=== PATIENT | male | born 1995 | race Hispanic/Latino ===

== ENCOUNTER 2019-02-07 19:23 | Emergency (ER) | payer SELFPAY ==
[2019-02-07] MEDS ORDERED: SODIUM CHLORIDE 0.9% 1000ML 1,000 ML IV ONE ×2 (20:09→21:11)
[2019-02-07 20:34] LABS: HEMATOCRIT 50.9 % (42-54); LYMPHOCYTES % (AUTO) 20.5 % (21.0-51.0); MEAN CORPUSCULAR HEMOGLOBIN 31.5 pg (27.0-33.0); MEAN CORPUSCULAR HGB CONC 34.5 g/dL (32.0-36.0); MEAN CORPUSCULAR VOLUME 91.1 fL (80-100); MONOCYTES % (AUTO) 7.7 % (3.0-13.0); NEUTROPHILS % (AUTO) 70.8 % (40.0-77.0); NUCLEATED RED BLOOD CELLS 0.2 % (0.0-0.19); PLATELET COUNT (AUTO) 427 K/uL (130-400); RED BLOOD CELL COUNT(AUTO) 5.59 MIL/uL (4.50-6.20); RED CELL DISTRIBUTION WIDTH 13.8 % (11.0-15.5); WHITE BLOOD COUNT (AUTO) 4.6 K/uL (4.8-10.8)
[2019-02-07 20:38] LABS: APPEARANCE,URINE Clear (CLEAR); BILIRUBIN,URINE Negative (NEGATIVE); COLOR,URINE Yellow (YELLOW); GLUCOSE, URINE (UA) Negative (NEGATIVE); KETONES,URINE 15 mg/dL (NEGATIVE); LEUKOCYTE ESTERASE ,URINE Negative (NEGATIVE); NITRATE,URINE Negative (NEGATIVE); OCCULT BLOOD,URINE Moderate (NEGATIVE); PROTEIN,URINE >=1000 mg/dL (NEGATIVE)
[2019-02-07 20:46] LABS: AMPHET/METH SCREEN,URINE NEGATIVE (NEGATIVE); BARBITURATE SCREEN, URINE NEGATIVE (NEGATIVE); BENZODIAZEPINES SCREEN,URINE NEGATIVE (NEGATIVE); CANNABINOID SCREEN,URINE NEGATIVE (NEGATIVE); COCAINE SCREEN,URINE NEGATIVE (NEGATIVE); OPIATE SCREEN,URINE NEGATIVE (NEGATIVE); PHENCYCLIDINE SCREEN,URINE NEGATIVE (NEGATIVE)
[2019-02-07 20:49] LABS: CREATININE 0.8 mg/dL (0.5-1.5); POTASSIUM 3.6 mmol/L (3.5-5.1)
[2019-02-07 20:52] LABS: BACTERIA,URINE Few /HPF (None Seen); MUCUS,URINE Moderate LPF (None Seen)
[2019-02-07 20:54] LABS: ALBUMIN 4.2 g/dL (3.5-5.0); BILIRUBIN,TOTAL 0.5 mg/dL (0.2-1.0); TOTAL PROTEIN, SERUM 8.6 g/dL (6.0-8.3)
[2019-02-07] MEDS ORDERED: KETOROLAC TROMETHAMINE 30MG/ML ONE (21:11)
== END 2019-02-07 23:58 | disposition home or self-care (01) ==
LOC: EDH 19:23
DX: R07.89 Other chest pain (principal); F10.929 Alcohol use, unspecified with intoxication, unspecified
CPT/HCPCS: 36415; 71045; 80053; 80305; 81001; 84484 ×2; 85025; 93005 ×2; 96374; 99285; G0480; J1885; J7030 ×2

== ENCOUNTER 2022-04-03 19:56 | Emergency (ER) | payer BC ==
[~2022-04-03] VITALS: Ht 172.7 cm; Wt 88.5 kg
[2022-04-03 20:08] VITALS: BP 147/79
[2022-04-03] MEDS ORDERED: TETANUS/DIPHTHERIA TOXOID [ADULT] 0.5 ML VIAL IM ONE (21:00)
[2022-04-03] MEDS ORDERED: LIDOCAINE HCL MPF 1% 5ML VIAL IM SCH (21:00)
[2022-04-03] MEDS ORDERED: LIDOCAINE HCL 1% 20 ML VIAL ONE (21:08)
[2022-04-03] MEDS ORDERED: BACITRACIN 1 EACH PACKET TP ONE (22:19)
[2022-04-03] MEDS ORDERED: IBUP-2070 PO (22:20)
[2022-04-03] MEDS ORDERED: AMOX1TAB16 PO (22:20)
[2022-04-03] MEDS ORDERED: BACI30OI6 TP (22:20)
[2022-04-03] MEDS ORDERED: BACITRACIN 28.4 GM OINT TP ONE (22:30)
[2022-04-03] MEDS ORDERED: AMOX/CLAV 875/125MG TAB PO ONE (22:30)
== END 2022-04-03 22:36 | disposition home or self-care (01) ==
LOC: EDH 19:56
DX: S81.012A Laceration without foreign body, left knee, initial encounter (principal); W18.39XA Other fall on same level, initial encounter; Y93.67 Activity, basketball; Y92.89 Other specified places as the place of occurrence of the external cause; Y99.8 Other external cause status
CPT/HCPCS: 99284; 90714; 73562; 90471; 12002; J3490

== ENCOUNTER 2025-03-21 15:58 | Inpatient (IN) | payer SELFPAY ==
[~2025-03-21] VITALS: Ht 172.7 cm; Wt 79.4 kg
[~2025-03-21 15:58] MED LIST: AMOX1TAB16 PO; BACI30OI6 TP; IBUP-1492 PO
--- NOTE | 2025-03-21 16:08 | ERN ---
ED Note History of Present Illness Stated Complaint: ALCOHOL WITHDRAWAL Chief Complaint: Withdrawl Time Seen by MD: 16:01 Dictation: PATIENT IS A 29-YEAR-OLD MALE COMING IN FROM [place] [employer] AFTER BEING ARRESTED OVERNIGHT FOR PUBLIC INTOXICATION. HE STATES HE DRINKS ON A DAILY BASIS LAST ALCOHOL WAS YESTERDAY AFTERNOON. STATES HE GOES INTO WITHDRAWALS WHEN HE JUST NOT DRINK. NO SI OR HI. PATIENT NOTED TO BE HYPERTENSIVE AND TACHYCARDIC. DOCTOR. Allergies: Coded Allergies: No Known Drug Allergies (Unverified Allergy, Unknown, 04/03/22) Home Meds Active Scripts Ibuprofen (Ibuprofen) 600 Mg Tablet, 600 MG PO Q6H PRN for PAIN, #15 TAB Prov:FITTINGPRISCILLAMATT [facility] 04/03/22 Bacitracin (Bacitracin) 28.4 Gm Oint...g., 28.4 GM TP TID, #1 TUBE Prov:FITTINGSTIVEN [facility] 04/03/22 Amoxicillin/Potassium Clav (Amox Tr-K Clv 875-125 mg Tab) 1 Each Tablet, 1 EACH PO BID, #14 TAB Prov:FITTING,PRISCILLAASHELY [facility] 04/03/22 Past Medical History Past Medical History: Alcoholism, Anxiety, Liver Disease Surgical History: Other Social History: ETOH RN Note Reviewed/Agreed w/PFSH: Yes Review of System Dictation CONSTITUTIONAL: NEGATIVE EXCEPT FOR HPI HEAD/FACE: NEGATIVE EXCEPT FOR HPI EENT: NEGATIVE EXCEPT FOR HPI RESPIRATORY: NEGATIVE EXCEPT FOR HPI GASTROINTESTINAL/ABDOMINAL: NEGATIVE EXCEPT FOR HPI GENITOURINARY: NEGATIVE EXCEPT FOR HPI MUSCULOSKELETAL: NEGATIVE EXCEPT FOR HPI INTEGUMENTARY: NEGATIVE EXCEPT FOR HPI NEUROLOGICAL/PSYCH: NEGATIVE EXCEPT FOR HPI ACUTE ALCOHOL WITHDRAWAL HEMATOLOGIC/LYMPHATIC: NEGATIVE EXCEPT FOR HPI ALL SYSTEMS NEGATIVE, EXCEPT NOTED ABOVE. 13 POINT REVIEW OF SYSTEMS ASSESSED AND ALL NEGATIVE EXCEPT FOR ABOVE. Initial Vital Sign VS Vital Signs Date Time Temp Pulse Resp B/P (MAP) Pulse Ox O2 Delivery O2 Flow Rate FiO2 03/21/25 16:00 97.9 105 20 160/73 99 Room Air 0 Physical Exam Dictation VITAL SIGNS REVIEWED GENERAL APPEARANCE: ALERT, ORIENTED X 3, MILD ACUTE DISTRESS, WELL DEVELOPED, NOURISHED. SMELLS OF HEAD AND FACE: NON-TRAUMATIC. EYES: PERRL, PINK CONJUNCTIVAS, EYELID NO TRAUMA, ANTERIOR CHAMBER WITH ARCUS SENILIS. EARS: PINNAS INTACT AND NO SIGNS OF TRAUMA OR ERYTHEMA EAR CANALS CLEAR AND NO DISCHARGE TM NO ERYTHEMA NOSE: NO DISCHARGE, NO BLEEDING. OROPHARYNX: MOUTH NORMAL, TONGUE PINK, PHARYNX CLEAR,NO ERYTHEMA, TONSILS NO EXUDATES, NO ABSCESSES NOTED, MUCOUS MEMBRANE MOIST NECK: SUPPLE, NON-TENDER, NO THYROMEGALY, NO MASSES, NO JVD, NO BRUITS BREAST:DEFERRED CHEST:NO TENDERNESS, NO CREPITUS, NO PARADOXICAL MOVEMENT, NO RETRACTIONS LUNGS:CLEAR, WELL-VENTILATED, SYMMETRIC, NO RALES, NO WHEEZING, NO RHONCHI, NO STRIDOR, GOOD BREATH SOUNDS BILATERALLY HEART: TACHYCARDIC O MURMUR, NO GALLOPS VASCULAR: NO PERIPHERAL EDEMA, ABDOMEN: SOFT, POSITIVE BOWEL SOUNDS, NONDISTENDED, NO GUARDING, NONTENDER, NO REBOUND, NO MASSES NO HEPATOMEGALY, NO SPLENOMEGALY, NO CHEUNG'S SIGN, NO HERNIAS. RECTAL: DEFERRED GENITAL: DEFERRED NEUROLOGICAL: NORMAL SPEECH, MOTOR FUNCTION INTACT, SENSORY FUNCTION INTACT DENIES SI OR HI MUSCULOSKELETAL: NECK NONTENDER, FULL RANGE OF MOTION, BACK NONTENDER, FULL RANGE OF MOTION, EXTREMITIES: NONTENDER, FULL RANGE OF MOTION SKIN: COLOR PINK, DRY, NO TURGOR, NO RASH, NO LACERATIONS, NO ABRASIONS, NO CONTUSIONS. LYMPHATIC: DEFERRED Results (Laboratory/Radiology) Laboratory/Radiology Laboratory Tests Test 03/21/25 16:15 White Blood Count 10.1 K/uL (4.8-10.8) Red Blood Count 4.64 MIL/uL (4.50-6.20) Hemoglobin 13.8 g/dL (14.0-18.0) L Hematocrit 38.6 % (42-54) L Mean Corpuscular Volume 83.2 fL (79-99) Mean Corpuscular Hemoglobin 29.7 pg (27.0-33.0) Mean Corpuscular Hemoglobin Concent 35.8 g/dL (32.0-36.0) Red Cell Distribution Width 11.9 % (11.0-15.5) Platelet Count 130 K/uL (130-400) Mean Platelet Volume 8.1 fL (7.5-10.5) Immature Granulocyte % (Auto) 0.9 % (0-1) Neutrophils (%) (Auto) 86.7 % (40.0-77.0) H Lymphocytes (%) (Auto) 4.6 % (21.0-51.0) L Monocytes (%) (Auto) 7.4 % (3.0-13.0) Eosinophils (%) (Auto) 0.1 % (0.0-8.0) Basophils (%) (Auto) 0.3 % (0.0-5.0) Neutrophils # (Auto) 8.8 K/uL (1.8-7.7) H Lymphocytes # (Auto) 0.5 K/uL (1.0-4.8) L Monocytes # (Auto) 0.8 K/uL (0.1-1.0) Eosinophils # (Auto) 0.01 K/uL (0.00-0.70) Basophils # (Auto) 0.03 K/uL (0.00-0.20) Absolute Immature Granulocyte (auto 0.09 K/uL (0-1) Segmented Neutrophils % 69 % (40-70) Band Neutrophils % 14 % (0-2) H Lymphocytes % (Manual) 7 % (22-44) L Monocytes % (Manual) 10 % (2-9) H Nucleated Red Blood Cells 0.0 % (0.0-0.19) Differential Comment MANUAL DIFFERENTIAL White Cell Morphology Comment CONSISTENT W/DIFF Platelet Morphology Comment ADEQUATE Red Blood Cell Morphology ANISO 1+ Sodium Level 114 mmol/L (136-145) L Potassium Level 3.0 mmol/L (3.5-5.1) *L Chloride Level 73 mmol/L (101-111) *L Carbon Dioxide Level 19 mmol/L (21-32) L Blood Urea Nitrogen 7 mg/dL (7-18) Creatinine 0.8 mg/dL (0.5-1.3) Glomerular Filtration Rate Calc 124 mL/min (>90) Random Glucose 120 mg/dL (70-105) H Total Calcium 7.5 mg/dL (8.5-10.1) L Magnesium Level 1.40 mg/dL (1.80-2.40) L Total Creatine Kinase 1983 U/L (21-232) *H Salicylates Level < 2.8 mg/dL (2.8-20.0) L Acetaminophen Level < 1 mcg/mL (10-29) L Serum Alcohol 176 mg/dL (0-10) H Labs Reviewed?: Yes ED Course ED Course Orders Procedure Category Date Status Time Drug Screen Urine LAB 03/21/25 Logged 16:04 Use [facility] CPOE 03/21/25 Transmitted Assmt. Tool 16:04 Diazepam 5 Mg/Ml 2 Ml PHA 03/21/25 In Process Syg (Valium 5 Mg/M 16:30 Cbc With Differential LAB 03/21/25 Complete 16:04 Alcohol, Blood LAB 03/21/25 Complete 16:04 Salicylate LAB 03/21/25 Complete 16:04 Acetaminophen LAB 03/21/25 Complete 16:04 Urinalysis Profile LAB 03/21/25 Logged 16:04 Creatine Kinase, Total LAB 03/21/25 Complete 16:04 Basic Metabolic Panel LAB 03/21/25 Complete 16:04 Diazepam 5 Mg/Ml 2 Ml PHA 03/21/25 Complete Syg (Valium 5 Mg/M 17:00 Magnesium LAB 03/21/25 Complete 16:47 Etoh Alcohol SOPHIA 03/21/25 In Process Withdrawal Ords 16:47 Chlordiazepoxide Hcl PHA 03/21/25 In Process 25 Mg Cap (Librium 17:00 Thiamine Hcl (Vitamin PHA 03/21/25 In Process B-1)... 17:00 Thiamine Hcl (Vitamin PHA 03/22/25 In Process B-1) 09:00 Folic Acid 1 Mg PHA 03/22/25 In Process Tablet (Folic Acid 1 09:00 Multivitamin Tablet PHA 03/22/25 In Process (Multivitamin Tablet 09:00 Pharmacy PHA 03/21/25 In Process Communication 17:00 Use [facility] CPOE 03/21/25 Transmitted Assmt. Tool 16:47 Assess The Need For CPOE 03/21/25 Transmitted Seizure & 16:47 Vs Per Unit Routine & CPOE 03/21/25 Transmitted With 16:47 Document Etoh CPOE 03/21/25 Transmitted Withdrawal Score 16:47 One To One Sitter CPOE 03/21/25 Transmitted 16:58 Manual Differential LAB 03/21/25 Complete 16:15 Potassium Bicarb/Cit PHA 03/21/25 Complete Ac 25meq (K-Lyte Ta 17:30 Magnesium 2gm Premix PHA 03/21/25 In Process 50ml (Magnesium 2gm 17:30 Edm Admit Bridge Order ADM 03/21/25 Transmitted 18:10 Current Medications Medications (Trade) Dose Ordered Sig/Sumanth Route PRN Reason Start Time Stop Time Status Last Admin Dose Admin Chlordiazepoxide HCl (LIBrium 25 MG CAP) 50 mg Q1H PRN PO ALCOHOL WITHDRAWAL PROTOCOL 03/21/25 17:00 03/28/25 16:59 03/21/25 17:57 Diazepam (VALium 5 MG/ML 2 ML SYG) 5 mg ONCE ONCE IVP 03/21/25 17:00 03/21/25 17:01 DC 03/21/25 17:28 Diazepam (VALium 5 MG/ML 2 ML SYG) 5 mg Q4H PRN IV ANXIETY 03/21/25 16:30 03/28/25 16:29 03/21/25 16:19 Folic Acid (FOLic ACID 1 MG TABLET) 1 mg DAILY PO 03/22/25 09:00 03/24/25 09:01 Magnesium Sulfate 50 ml @ 0 mls/hr PROTOCOL IV 03/21/25 17:30 04/20/25 17:29 Multivitamins Therapeutic (Multivitamin Tablet) 1 tab DAILY PO 03/22/25 09:00 04/21/25 08:59 Pharmacy Profile Note (Pharmacy Communication) 1 each PROTOCOL PRN MISC ETOH Withdrawal Score changes 03/21/25 17:00 03/28/25 16:59 Potassium Bicarbonate (K-Lyte Tablet Eff 25 Meq Tablet.eff) 50 meq ONCE ONCE PO 03/21/25 17:30 03/21/25 17:31 DC 03/21/25 17:57 Thiamine HCl (Vitamin B-1) 100 mg DAILY IM 03/22/25 09:00 03/24/25 09:01 Thiamine HCl 100 mg/Folic Acid 1 mg/Multivitamins/ Minerals 10 ml/ Sodium Chloride 1,011.2 ml @ 100 mls/ hr Q24H IV 03/21/25 17:00 03/24/25 03:07 03/21/25 17:47 Vital Signs Date Time Temp Pulse Resp B/P (MAP) Pulse Ox O2 Delivery O2 Flow Rate FiO2 03/21/25 16:00 97.9 105 20 160/73 99 Room Air 0 1655/CIWA PROTOCOL WAS INITIATED WHEN PATIENT ARRIVED. HE HAS ALREADY BEEN PROVIDED DIAZEPAM5 MG IV PUSH X2 BY [employer]ICRAFT OR [employer] MANAGER. HE IS BECOMING INCREASINGLY AGITATED AND WANTS TO LEAVE THE HOSPITAL. I ADVISED HIM IF HE WOULD TRY TO LEAVE I WOULD CALL THE POLICE TO HAVE HIM ARREST UP BECAUSE HE WAS A THREAT TO HIMSELF AND OTHERS. HE SAID HE WOULD CALL HIS GRANDFATHER TO PICK HIM UP. ADDITIONALLY, I WE WILL ORDER A 1-1 SITTER PATIENT THREAT TO HIMSELF 1800/PATIENT RHABDOMYOLYSIS CK 1898. POTASSIUM IS 3.[address] WITH THE ORAL ADDITIONALLY HE HAS A CHLORIDE OF 81 PATIENT WILL BE ADMITTED TO THE HOSPITAL FOR ACUTE ALCOHOL WITHDRAWAL SEVERE DEHYDRATION RHABDOMYOLYSIS ELECTROLYTE [id number]/ 181/SPOKE WITH PRISCILLA RIVERO HOSPITALIST REVIEWED LABS AND INTERVENTIONS FOR ACUTE ALCOHOL WITHDRAWAL TO INCLUDE CIWA/MAGNESIUM/VALIUM/BANANA BAG. Medical Decision Making MDM MDM: DIFFERENTIAL DIAGNOSIS: POLYDRUG ABUSE/ALCOHOL INTOXICATION/ELECTROLYTE IMBALANCE/DEHYDRATION/RHABDO RATIONALE: TESTS CONSIDERED AND ORDERED SECONDARY TO SHARED DECISION MAKING INCLUDE: LABS, PREVIOUS OUTSIDE RECORDS REVIEWED: OLD ER VISITS. RISK OF COMPLICATION AND/OR MORBIDITY OR MORTALITY OF PATIENT MANAGEMENT: NONE MEDICATIONS-PER MEDICATION RECONCILIATION NEED FOR HOSPITALIZATION: PATIENT DOES MEET CRITERIA FOR HOSPITALIZATION. ACUTE ALCOHOL WITHDRAWAL ELECTROLYTE STABILIZATION REHYDRATION NEED FOR EMERGENCY MAJOR/MINOR SURGERY: NO THERE ARE NO SOCIAL CONCERNS WITH THIS PATIENT. DAILY ALCOHOL ABUSE PATIENT IS A THREAT TO HIMSELF PRESCRIPTION DRUG MANAGEMENT PRESCRIPTIONS WILL INCLUDE SYMPTOMATIC CARE PATIENT'S PRIOR EXTERNAL MEDICAL RECORDS FROM OTHER ER VISITS WERE REVIEWED BY ME INDICATED. PRIOR TESTING AND RESULTS FROM PREVIOUS VISITS WERE REVIEWED. PRIOR TESTS WERE TAKEN INTO ACCOUNT WITH MEDICAL DECISION MAKING AND RESOURCE UTILIZATION, INDEPENDENT HISTORIAN/HISTORIANS WERE USED TO OBTAIN COMPLETE MEDICAL HISTORY. I INDEPENDENTLY INTERPRETED THE TEST THAT WERE PERFORMED, RESULTS WERE REVIEWED BY ME AND CONSIDERED FINDINGS ON RADIOLOGY IF ORDERED. MEDICAL MANAGEMENT AND EXAMINATION INTERPRETATION DISCUSSIONS WERE HAD BY ME WITH OTHER QUALIFIED HEALTHCARE PROFESSIONALS INDICATED FOR THE PATIENT'S CARE. DX & DISP Disposition: Inpatient Departure Impression: Primary Impression: Acute alcohol intoxication Additional Impressions: Alcohol abuse, Rhabdomyolysis, Hyponatremia, Severe dehydration, Hypomagnesemia, Poor ability to follow directions Condition: Stable Referrals: SELF,REFERRAL (PCP) Time of Disposition: 17:59 I have reviewed the case, and I agree with, Diagnosis and Plan WILIAN EUBANKS Mar 21, 2025 16:08
[2025-03-21 16:50] LABS: IMMATURE GRANULOCYTE ABSOLUTE 0.09 K/uL (0-1); NUCLEATED RED BLOOD CELLS 0.0 % (0.0-0.19); PLATELET COUNT (AUTO) 130 K/uL (130-400); RED BLOOD CELL COUNT(AUTO) 4.64 MIL/uL (4.50-6.20); RED CELL DISTRIBUTION WIDTH 11.9 % (11.0-15.5); WHITE BLOOD COUNT (AUTO) 10.1 K/uL (4.8-10.8)
[2025-03-21] MEDS ORDERED: PHARMACY COMMUNICATION MISC PRN (17:00)
[2025-03-21 17:07] LABS: BAND NEUTROPHILS % (MANUAL) 14 % (0-2); LYMPHOCYTES % (MANUAL) 7 % (22-44); MONOCYTES % (MANUAL) 10 % (2-9); SEGMENTED NEUTROPHILS % 69 % (40-70)
[2025-03-21 17:08] LABS: MAN.DIFF COMMENT-IMPRESSION MANUAL DIFFERENTIAL; PLATELET MORPHOLOGY COMMENT ADEQUATE; WBC MORPHOLOGY CONSISTENT W/DIFF
[2025-03-21 17:21] LABS: ALCOHOL, BLOOD 176 mg/dL (0-10); CREATININE 0.8 mg/dL (0.5-1.3); GLOMERULAR FILTR. RATE CALC 124 mL/min (>90); GLUCOSE,RANDOM 120 mg/dL (70-105); SODIUM SERUM 114 mmol/L (136-145); UREA NITROGEN, BLOOD 7 mg/dL (7-18)
[2025-03-21 17:25] LABS: CREATINE KINASE, TOTAL 1983 U/L (21-232)
[2025-03-21] MEDS: THIAMINE HCL 100 MG, FOLic ACID 5 MG/ML VIAL 1 MG, M.V.I. IV [ADULT] 10 ML in 0.9%NACL ... IV SCH ×2 (17:47→20:00)
--- NOTE | 2025-03-21 18:05 | NUR ---
PT MOTHER ISABELAHUNTER HUI [phone]
[2025-03-21 18:18] LABS: APPEARANCE,URINE CLEAR (CLEAR); GLUCOSE, URINE (UA) NEGATIVE (NEGATIVE); LEUKOCYTE ESTERASE ,URINE NEGATIVE Leu/uL (NEGATIVE); NITRATE,URINE NEGATIVE (NEGATIVE); OCCULT BLOOD,URINE MODERATE (NEGATIVE)
[2025-03-21 18:20] LABS: ADD UA MICROSCOPIC YES
[2025-03-21 18:27] LABS: AMPHET/METH SCREEN,URINE NEGATIVE (NEGATIVE); BARBITURATE SCREEN, URINE NEGATIVE (NEGATIVE); CANNABINOID SCREEN,URINE NEGATIVE (NEGATIVE); COCAINE SCREEN,URINE NEGATIVE (NEGATIVE)
[2025-03-21] MEDS: MAGNESIUM 2GM PREMIX 50ML 50 ML IV SCH (19:10)
--- NOTE | 2025-03-21 19:13 | HP ---
History of Present Illness Reason for Visit: [facility] History of Present Illness Mr. Bauer is a 29-year-old male that was seen and examined today on 03/21/2025. Patient is currently a poor historian after receiving IV Valium and oral Librium. There was no previous medical records available for me to review. The following was obtained from emergency room physician report. This is a 29-year-old male with a history of alcohol abuse, alcohol dependence with withdrawal episodes, anxiety and reported liver disease who presents from police custody after being arrested for public intoxication overnight. Patient reports drinking alcohol daily with his last drink yesterday afternoon. He states he experiences withdrawals if I do not drink. Upon arrival to the emergency department that patient was visibly intoxicated, becoming increasingly agitated, restless and wanted to leave the hospital. He denied suicidal or homicidal ideation. ED staff noted hypertension and tachycardia on presentation. Labs are significant for sodium of 114, potassium 3.0, hypochloremia with a chloride of 73, calcium 7.5, hypomagnesemia with magnesium of 1.4, CK was 1983, serum alcohol level was 176 renal function is normal WBCs are unremarkable. Patient is clinically dehydrated, tachycardic and at high risk for imminent alcohol withdrawal, including seizures or DTs. CI WA protocol was initiated. Patient continues to display empiric judgment agitation and poor ability to follow directions. Past Medical History ADDITIONAL PAST MEDICAL HISTORY: [Alcohol use disorder, alcohol dependence with withdrawal, anxiety, liver disease] SOCIAL HISTORY: [None or unknown negative for smoking, positive heavy daily alcohol user, negative drug use.] SURGICAL HISTORY: [] Review of Systems General: No Fever, No Chills, No Night Sweats, No Fatigue, No Malaise, No Appetite, No Other HEENT: No Head Aches, No Visual Changes, No Eye Pain, No Ear Pain, No Dysphasia, No Sinus Congestion, No Post Nasal Drip, No Sore Throat, No Other Pulmonary: No Dyspnea, No Cough, No Pleuritic Chest Pain, No Other Cardiovascular: No: Chest Pain, Palpitations, Orthopnea, Paroxysmal Noc. Dyspnea, Edema, Lt Headedness, Other Gastrointestinal: No: Nausea, Vomiting, Abdominal Pain, Diarrhea, Constipation, Melena, Hematochezia, Other Genitourinary: No Dysuria, No Frequency, No Incontinence, No Hematuria, No Retention, No Other Musculoskeletal: No: other, neck pain, shoulder pain, arm pain, back pain, hand pain, leg pain, foot pain Skin: No Urticaria, No Rash, No Other Neurological: Confusion; No: Weakness, Numbness, Incoordination, Change in speech, Seizures, Other Allergies: Coded Allergies: No Known Drug Allergies (Unverified Allergy, Unknown, 04/03/22) Scheduled Amoxicillin/Potassium Clav (Amox Tr-K Clv 875-125 mg Tab), 1 EACH PO BID Bacitracin (Bacitracin), 28.4 GM TP TID Scheduled PRN Ibuprofen (Ibuprofen), 600 MG PO Q6H PRN for PAIN Exam Vital Signs Vital Signs Date Time Temp Pulse Resp B/P (MAP) Pulse Ox O2 Delivery O2 Flow Rate FiO2 03/21/25 16:00 97.9 105 20 160/73 99 Room Air 0 General Appearance: Alert (X1), Cooperative, No acute distress HEENT: Atraumatic, EOMI Respiratory: Clear to auscultation, Normal air movement, NL respiratory effort Cardiovascular: Regular rate, Regular rhythm, Normal S1, Normal S2 Abdominal: Normal bowel sounds, Soft, No tenderness Extremities: No edema Skin: No significant lesion Neuro: Strength at 5/5 X4 ext, Sensation intact, Cranial nerves 3-12 NL (To assess) Psych/Mental Status: Other (Unable) Assessment/Plan ASSESSMENT: [ Acute alcohol withdrawal/acute alcohol intoxication, POA Severe hyponatremia likely beer potomania, POA Dehydration, POA hypokalemia, POA Hypomagnesemia, POA Rhabdomyolysis, POA High anion gap metabolic disturbance, POA PLAN: [ Admit patient to medical floor as inpatient status. Place patient on telemetry monitoring. 1-1 sitter per emergency room monitors IV fluid maintenance therapy 0.9% NS at 100 mL/HR (banana bag), plus multivitamin, thiamine, folic acid Counseled patient on alcohol cessation. Librium 25 mg by mouth every 8 hours As needed Ativan for alcohol withdrawal 1 mg every 4 hours Use CIWA-AR assessment tool Document EtOH withdrawal score Assess the need for seizure and aspiration precautions Monitor patient's BNP every 6 hours Monitor patient's CK every 6 hours Replace potassium per hospital protocol Replace magnesium per hospital protocol Avoid nephrotoxic medications when possible Monitor patient's renal function Intake and output every shift Weight patient daily GI prophylaxis, famotidine DVT prophylaxis, Osito's and SCDs avoid anticoagulation at this time due to reported liver disease This document was generated in part using voice recognition software, occasional wrong word or sound alike substitutions may have occurred due to the inherent limitations of voice recognition software. Read the chart carefully and recognize using context, where the substitutions have occurred. Although every effort was made to edit the content, lace and textiles restorer and typing errors may occur ATTESTATION BY PHYSICIAN I have seen and examined the patient. I reviewed the documentation, medical decision making, and treatment plan as noted by the mid-level provider above. I agree with the findings and plan of care.] PRISCILLA [facility] Mar 21, 2025 19:13
[2025-03-21] MEDS ORDERED: MAGNESIUM 2GM PREMIX 50ML 50 ML IV PRN (20:00)
[2025-03-21] MEDS ORDERED: PoTASSium chl 10% ELIXIR 20MEQ 20 MEQ/15 ML UDCUP PO PRN (20:00)
[2025-03-21] MEDS ORDERED: COMPOUND IV REFRIGERATED 1 EACH IVSOLN MISC PRN (20:00)
--- NOTE | 2025-03-21 20:29 | NUR ---
PATIENT STATES HE DOES NOT TAKE PRESCRIBED MEDICATIONS
[2025-03-21 20:50] VITALS: BP 146/90; PULSE 111; RESP 20; TEMP 98.5
[2025-03-21 21:30] VITALS: O2SAT 98
[2025-03-21] MEDS: PoTASSium chloRIDE 20MEQ ER 20 MEQ ERTAB PO PRN (22:00)
[2025-03-21 23:15] LABS: CREATININE 0.6 mg/dL (0.5-1.3); GLOMERULAR FILTR. RATE CALC 136.0 mL/min (>90); GLUCOSE,RANDOM 77.0 mg/dL (70-105); SODIUM SERUM 130.0 mmol/L (136-145); UREA NITROGEN, BLOOD 6.0 mg/dL (7-18)
[2025-03-21 23:50] VITALS: BP 133/84; PULSE 89; RESP 18; TEMP 98.3
[2025-03-22] VITALS (8 sets, daily range): BP systolic 133–145; BP diastolic 78–106; PULSE 73–97; RESP 16–20; TEMP 98.1–98.6; O2SAT 95–98
[2025-03-22] MEDS: 0.9%NACL 1000ML 1,000 ML IV SCH (00:30)
[2025-03-22 05:35] LABS: CREATININE 0.5 mg/dL (0.5-1.3); GLOMERULAR FILTR. RATE CALC 143.0 mL/min (>90); GLUCOSE,RANDOM 77.0 mg/dL (70-105); SODIUM SERUM 131.0 mmol/L (136-145); UREA NITROGEN, BLOOD 6.0 mg/dL (7-18)
--- NOTE | 2025-03-22 05:59 | NUR ---
home meds spoke with patient's mother, radha. she will bring patient's home meds today
--- NOTE | 2025-03-22 06:45 | PN ---
[facility] PROGRESS NOTE Date of Service: Mar 22, 2025 Time of Service: 06:43 SUBJECTIVE: [ ] Mr. Bauer is a 29-year-old male that was seen and examined today on 03/21/2025. Patient is currently a poor historian after receiving IV Valium and oral Librium. There was no previous medical records available for me to review. The following was obtained from emergency room physician report. This is a 29-year-old male with a history of alcohol abuse, alcohol dependence with withdrawal episodes, anxiety and reported liver disease who presents from police custody after being arrested for public intoxication overnight. Patient reports drinking alcohol daily with his last drink yesterday afternoon. He states he experiences withdrawals if I do not drink. Upon arrival to the emergency department that patient was visibly intoxicated, becoming increasingly agitated, restless and wanted to leave the hospital. He denied suicidal or homicidal ideation. ED staff noted hypertension and tachycardia on presentation. Labs are significant for sodium of 114, potassium 3.0, hypochloremia with a chloride of 73, calcium 7.5, hypomagnesemia with magnesium of 1.4, CK was 1983, serum alcohol level was 176 renal function is normal WBCs are unremarkable. Patient is clinically dehydrated, tachycardic and at high risk for imminent alcohol withdrawal, including seizures or DTs. CI [place] protocol was initiated. Patient continues to display empiric judgment agitation and poor ability to follow directions. 03/22/25 patient has 1-1 observation suicidal, the patient is requesting multiple times for additional Ativan, patient was given Valium. We will increase Librium to 50 mg as needed. Patient reports does not want to harm self or others. He continues with IV fluids and CIWA protocol. Advised patient he will need to stay until his CK improves he verbalized understanding. REVIEW OF SYSTEMS CONSTITUTIONAL: Denies fevers, chills, or night sweats. No unintentional weight loss reported. NEUROLOGICAL: Denies headache, amaurosis fugax, motor weakness, sensory deficit, vertigo/spinning sensation, gait abnormalities, or tremors. ENT: No hearing loss, otalgia, otorrhea, rhinitis, rhinorrhea, hoarseness, or s ore throat. CARDIOVASCULAR: Denies any exertional angina, dyspnea on exertion, orthopnea, paroxysmal nocturnal dyspnea, palpitations, life-threatening arrhythmias, claudication. PULMONARY: Denies any shortness of breath, cough, phlegm/sputum, hemoptysis, pleuritic chest pain. SLEEP: Denies morning headaches, daytime somnolence or napping. Denies difficulty falling asleep, staying asleep, waking from sleep. Denies knowledge of snoring. GASTROINTESTINAL: Denies any type of dysphagia to either liquids or solids. Denies nausea, vomiting, pyrosis, early satiety, abdominal pain, diarrhea, constipation, or changes in stool consistency or caliber. Denies coffee-ground emesis, hematemesis, hematochezia, or melanotic stools. GENITOURINARY: Denies frequency, urgency, nocturia, hematuria or incontinence (Storage/Irritative symptoms.) Low urinary stream, straining to void, urinary intermittency or hesitancy, splitting of the voiding stream, terminal dribbling. ENDOCRINOLOGIC: Denies polyuria, polydipsia, polyphagia or heat/cold intolerances. HEMATOLOGIC: Denies thrombophilia/previous clots, or coagulopathy/bleeding disorders. ONCOLOGIC: Denies personal history of malignancy. DERMATOLOGIC: Denies rashes or pruritus. PSYCHIATRIC: Denies any suicidal or homicidal ideation. Denies hallucinations. PHYSICAL EXAM GENERAL APPEARANCE: The patient is awake, alert, and oriented, in no acute cardiopulmonary distress. NEUROLOGICAL: Cranial nerves II-XII grossly intact. Motor is 5/5 in bilateral upper and lower extremities proximal to distal. No sensory deficits. HEENT: Face is symmetric. Pupils are equal and reactive. Extraocular movements are intact. NECK: Supple. No JVD. No thyromegaly. No submental, submandibular, pre- /postauricular, occipital or supraclavicular lymphadenopathy. CHEST: Normal chest expansion. No Telemetry. LUNGS: Absence of any rales, rhonchi or any wheezing. CARDIOVASCULAR: Regular. S1 and S2 normal. No appreciable rubs, murmurs or gallops. ABDOMEN: Soft, nontender, and nondistended. There is no rebound, voluntary guarding, or rigidity. : Deferred. No Ham. EXTREMITIES: Non-edematous and not cyanotic. No clubbing. Good capillary refill. SKIN: No skin breakdown. Vital Signs (last 8hr) Date Time Temp Pulse Resp B/P (MAP) Pulse Ox O2 Delivery O2 Flow Rate FiO2 03/22/25 03:07 98.1 97 18 133/82 98 Room Air 03/21/25 23:50 98.2 89 18 133/84 98 Room Air LABS: Laboratory: Test 03/22/25 04:42 03/21/25 17:55 03/21/25 16:15 Range/Units Sodium Level 131 L 136-145 mmol/L Potassium Level 4.1 3.5-5.1 mmol/L Chloride Level 91 L 101-111 mmol/L Carbon Dioxide Level 28 21-32 mmol/L Blood Urea Nitrogen 6 L 7-18 mg/dL Creatinine 0.5 0.5-1.3 mg/dL Glomerular Filtration Rate Calc 143 >90 mL/min Random Glucose 77 70-105 mg/dL Total Calcium 8.6 8.5-10.1 mg/dL Total Creatine Kinase 5206 *H 21-232 U/L Urine Color STRAW YELLOW Urine Appearance CLEAR CLEAR Urine pH 5.5 5.0-8.0 Urine Specific [place] 1.003 1.001-1.031 Urine Protein 10 H NEGATIVE mg/dL Urine Glucose (UA) NEGATIVE NEGATIVE mg/dL Urine Ketones 20 H NEGATIVE mg/dL Urine Occult Blood MODERATE H NEGATIVE Urine Nitrate NEGATIVE NEGATIVE Urine Bilirubin NEGATIVE NEGATIVE mg/dL Urine Urobilinogen 0.2 0.2-1.0 mg/dL Urine Leukocyte Esterase NEGATIVE NEGATIVE Sarah/uL Urine RBC 0-1 0-1 /HPF Urine WBC 0-1 0-1 /HPF Urine Bacteria None None Seen /HPF Urine Opiates Screen NEGATIVE NEGATIVE Urine Barbiturates Screen NEGATIVE NEGATIVE Urine Phencyclidine Screen NEGATIVE NEGATIVE Urine Amphetamines Screen NEGATIVE NEGATIVE Urine Benzodiazepines Screen NEGATIVE NEGATIVE Urine Cocaine Screen NEGATIVE NEGATIVE Urine Marijuana (THC) Screen NEGATIVE NEGATIVE White Blood Count 10.1 4.8-10.8 K/uL Red Blood Count 4.64 4.50-6.20 MIL/uL Hemoglobin 13.8 L 14.0-18.0 g/dL Hematocrit 38.6 L 42-54 % Mean Corpuscular Volume 83.2 79-99 fL Mean Corpuscular Hemoglobin 29.7 27.0-33.0 pg Mean Corpuscular Hemoglobin Concent 35.8 32.0-36.0 g/dL Red Cell Distribution Width 11.9 11.0-15.5 % Platelet Count 130 130-400 K/uL Mean Platelet Volume 8.1 7.5-10.5 fL Immature Granulocyte % (Auto) 0.9 0-1 % Neutrophils (%) (Auto) 86.7 H 40.0-77.0 % Lymphocytes (%) (Auto) 4.6 L 21.0-51.0 % Monocytes (%) (Auto) 7.4 3.0-13.0 % Eosinophils (%) (Auto) 0.1 0.0-8.0 % Basophils (%) (Auto) 0.3 0.0-5.0 % Neutrophils # (Auto) 8.8 H 1.8-7.7 K/uL Lymphocytes # (Auto) 0.5 L 1.0-4.8 K/uL Monocytes # (Auto) 0.8 0.1-1.0 K/uL Eosinophils # (Auto) 0.01 0.00-0.70 K/uL Basophils # (Auto) 0.03 0.00-0.20 K/uL Absolute Immature Granulocyte (auto 0.09 0-1 K/uL Segmented Neutrophils % 69 40-70 % Band Neutrophils % 14 H 0-2 % Lymphocytes % (Manual) 7 L 22-44 % Monocytes % (Manual) 10 H 2-9 % Nucleated Red Blood Cells 0.0 0.0-0.19 % Differential Comment MANUAL DIFFERENTIAL White Cell Morphology Comment CONSISTENT W/DIFF Platelet Morphology Comment ADEQUATE Red Blood Cell Morphology ANISO 1+ Magnesium Level 1.40 L 1.80-2.40 mg/dL Salicylates Level < 2.8 L 2.8-20.0 mg/dL Acetaminophen Level < 1 L 10-29 mcg/mL Serum Alcohol 176 H 0-10 mg/dL Current Medications Medications (Trade) Dose Ordered Sig/Sumanth Route PRN Reason Start Time Stop Time Status Last Admin Dose Admin Chlordiazepoxide HCl (LIBrium 25 MG CAP) 25 mg Q8H PO 03/22/25 04:00 03/29/25 03:59 03/22/25 04:41 25 MG Chlordiazepoxide HCl (LIBrium 25 MG CAP) 50 mg Q1H PRN PO ALCOHOL WITHDRAWAL PROTOCOL 03/21/25 17:00 03/28/25 16:59 03/21/25 19:09 50 MG Diazepam (VALium 5 MG/ML 2 ML SYG) 5 mg Q4H PRN IV ANXIETY 03/21/25 16:30 03/28/25 16:29 03/22/25 02:12 5 MG Folic Acid (FOLic ACID 1 MG TABLET) 1 mg DAILY PO 03/22/25 09:00 03/24/25 09:01 Lorazepam (AtiVAN) 2 mg Q4H PRN IVP ALCOHOL WITHDRAWAL PROTOCOL 03/21/25 20:00 03/28/25 19:59 03/22/25 00:30 2 MG Magnesium Sulfate 50 ml @ 0 mls/hr PROTOCOL IV 03/21/25 17:30 04/20/25 17:29 03/21/25 19:10 25 MLS/HR Magnesium Sulfate 50 ml @ 0 mls/hr PROTOCOL PRN IV h 03/21/25 20:00 04/20/25 19:59 Multivitamins Therapeutic (Multivitamin Tablet) 1 tab DAILY PO 03/22/25 09:00 04/21/25 08:59 Pharmacy Profile Note (Pharmacy Communication) 1 each PROTOCOL PRN MISC ETOH Withdrawal Score changes 03/21/25 17:00 03/28/25 16:59 Pharmacy Profile Note (Pharmacy Communication) 1 each PROTOCOL PRN MISC ETOH Withdrawal Score changes 03/21/25 20:00 03/28/25 19:59 Potassium Chloride 100 ml @ 50 mls/hr AD PRN IV POTASSIUM PROTOCOL 03/21/25 20:00 04/20/25 19:59 Potassium Chloride 100 ml @ 100 mls/hr AD PRN IV POTASSIUM PROTOCOL 03/21/25 20:00 04/20/25 19:59 Potassium Chloride (K-Dur/Klor-Con 20meq) 20 meq AD PRN PO POTASSIUM PROTOCOL 03/21/25 20:00 04/20/25 19:59 03/21/25 22:00 20 MEQ Potassium Chloride (KCl 10% Elixir 20meq/15ml) 20 meq AD PRN PO POTASSIUM PROTOCOL 03/21/25 20:00 04/20/25 19:59 Thiamine HCl (Vitamin B-1) 100 mg DAILY IM 03/22/25 09:00 03/24/25 09:01 Thiamine HCl 100 mg/Folic Acid 1 mg/Multivitamins/ Minerals 10 ml/ Sodium Chloride 1,011.2 ml @ 100 mls/ hr Q24H IV 03/21/25 17:00 03/24/25 03:07 03/21/25 17:47 100 MLS/HR Thiamine HCl 100 mg/Folic Acid 1 mg/Multivitamins/ Minerals 10 ml/ Sodium Chloride 1,011.2 ml @ 100 mls/ hr Q24H IV 03/21/25 20:00 03/24/25 06:07 DIAGNOSTICS / RADIOLOGY: [ ] Acute alcohol withdrawal/acute alcohol intoxication, POA Severe hyponatremia likely beer potomania, POA Dehydration, POA hypokalemia, POA Hypomagnesemia, POA Rhabdomyolysis, POA High anion gap metabolic disturbance, POA PLAN: [ Admit patient to medical floor as inpatient status. Place patient on telemetry monitoring. Continues 1-1 we will have social insurance specialist once patient is stable for Behavioral screening NS at 150 . mL/hour we will repeat CK in a.m. Continue CIWA protocol Counseled patient on alcohol cessation. Replace potassium per hospital protocol Replace magnesium per hospital protocol Avoid nephrotoxic medications when possible Monitor patient's renal function Intake and output every shift Weight patient daily GI prophylaxis, famotidine DVT prophylaxis, Osito's and SCDs avoid anticoagulation at this time due to reported liver disease This document was generated in part using voice recognition software, occasional wrong word or sound alike substitutions may have occurred due to the inherent limitations of voice recognition software. Read the chart carefully and recognize using context, where the substitutions have occurred. Although every effort was made to edit the content, horse rider and typing errors may occur ATTESTATION BY PHYSICIAN I have seen and examined the patient. I reviewed the documentation, medical decision making, and treatment plan as noted by the mid-level provider above. I agree with the findings and plan of care. Jin Javier IV, MD, [facility] Mar 22, 2025 06:45
[2025-03-22] MEDS: MULTIVITAMIN TABLET PO SCH (08:33)
[2025-03-22] MEDS: THIAMINE HCL 100 MG/ML 2ML VIAL IM SCH (08:34)
[2025-03-22 10:20] LABS: CREATININE 0.5 mg/dL (0.5-1.3); GLOMERULAR FILTR. RATE CALC 143.0 mL/min (>90); GLUCOSE,RANDOM 111.0 mg/dL (70-105); SODIUM SERUM 127.0 mmol/L (136-145); UREA NITROGEN, BLOOD 6.0 mg/dL (7-18)
[2025-03-22] MEDS ORDERED: SERT-440 PO (11:24)
[2025-03-22] MEDS ORDERED: GABA-529 PO (11:24)
--- NOTE | 2025-03-22 14:50 | NUR ---
CAME TO NURSING STATION TO SPEAK TO NURSE RE SS ORDER FOR BEHAVIORAL SCREENING 'WHEN STABLE' ASKED WHY PATIENT IS ON BEHAVOIRAL. 1;1 . PRIMARY RN ADVISED VERY - STATES SHE BELIEVES THAT PER REPORT MOTHER WAS CONCERNED ABOUT HIS MOOD AND AFFECT; WILL REVIEW CHART
--- NOTE | 2025-03-22 15:00 | NUR ---
INITIAL ASSESSMENT AND CHANGE IN CARE SPOKE WITH PATIENT IN ROOM, PT IS ON A ONE TO ONE, FOR 'BEHAVIORS'. PATIENT STATES WORKS A IN [employer]/ ON [employer], HAS THREE KIDS, LIVES W SPOUSE, IS INDEPENDENT DRIVE, DRINKS DAILY STATES WANTS TO GO HOME, IF HE CAN'T GO HOME WANTS HIS WFE TO STAY WITH THEIR 2YR OLD DAUGHTER. ADVISED HIM THAT WASNOT PERMITTED. PATIENTT STATES HE WAS JUST DEHYDRATED AND WANT TO DRINK GATORDE AND GOHOME IN THE AM. DECLINED OTHER QUESTIONS, REVIEW OF CHART " THREAT TO SELF/OTHERS DOCUMENTED A IN ER CHART, CALL TO DIRECTOR OF EPIDEMIOLOGY SUSY RE SI PROTOCOL, AND THAT IT IS BETTER TO GET PSYCH CONSULT EARLY B ECAUSE TELE PSYCH MAY HAVE BETTER MEDS THAT CAN BE GIVEN FOR HIS INCREASING AGITATION ORDER FOR SI PRECAUTIONS AND TELEPYSCH TONIGHT
--- NOTE | 2025-03-22 15:20 | NUR ---
TELE PSYCH CONSULT IPAD IS IN THE ROOM.
[2025-03-22 16:13] LABS: CREATININE 0.7 mg/dL (0.5-1.3); GLOMERULAR FILTR. RATE CALC 130.0 mL/min (>90); GLUCOSE,RANDOM 134.0 mg/dL (70-105); SODIUM SERUM 127.0 mmol/L (136-145); UREA NITROGEN, BLOOD 5.0 mg/dL (7-18)
--- NOTE | 2025-03-22 18:45 | NUR ---
PATIENT WAS PLACED IN SI PRECAUTIONS. PATIENT REFUSED TO GIVE THE PHONE TO THE NURSE. REFUSAL FORM WAS SIGNED BY NURSE AND WITNESS NURSE. PATIENT IS ON THE BED ON THE PHONE WITH . PATIENT IS UPSET. NEONATAL SOCIAL WORKER PLACED BELONGINGS IN BAG AND WERE TRANSPORTED TO SECURITY OFFICE. ESCOBAR MEDINA SPOKE TO PATIENTS MARTINA MAR ON THE PHONE AND SHE VERBALIZED UNDERSTANDING THE HOSPITALS PROTOCOL. PATIENTS KEEPS ANTOGONIZING AND ENCOURAGING PATIENTS BEHAVIOR OF KEEPING THE PHONE.
--- NOTE | 2025-03-22 20:00 | NUR ---
pt on 1:1 pt denies suicidal ideations does not have a plan or wish to harm himself pt is anxious restless on scheduled librium refer to alcohol withdrawl assesement 2mg ativan iv given
[2025-03-22 23:00] LABS: CREATININE 0.5 mg/dL (0.5-1.3); GLOMERULAR FILTR. RATE CALC 143.0 mL/min (>90); GLUCOSE,RANDOM 99.0 mg/dL (70-105); SODIUM SERUM 131.0 mmol/L (136-145); UREA NITROGEN, BLOOD 5.0 mg/dL (7-18)
--- NOTE | 2025-03-22 23:08 | NUR ---
tck lab [id number] lab value decreasingmd aware of pt status
[2025-03-23] VITALS (8 sets, daily range): BP systolic 136–156; BP diastolic 59–108; PULSE 72–105; RESP 17–20; TEMP 97.6–98.4; O2SAT 96
[2025-03-23] MEDS: PHARMACY COMMUNICATION MISC PRN (01:30)
[2025-03-23 05:23] LABS: IMMATURE GRANULOCYTE ABSOLUTE 0.02 K/uL (0-1); NUCLEATED RED BLOOD CELLS 0.0 % (0.0-0.19); PLATELET COUNT (AUTO) 89 K/uL (130-400); RED BLOOD CELL COUNT(AUTO) 5.06 MIL/uL (4.50-6.20); RED CELL DISTRIBUTION WIDTH 12.3 % (11.0-15.5); WHITE BLOOD COUNT (AUTO) 4.6 K/uL (4.8-10.8)
[2025-03-23 06:09] LABS: ASPARTATE AMINOTRANSFERASE 99.0 U/L (10-37); CREATININE 0.5 mg/dL (0.5-1.3); GLOMERULAR FILTR. RATE CALC 143.0 mL/min (>90); GLUCOSE,RANDOM 87.0 mg/dL (70-105); SODIUM SERUM 132.0 mmol/L (136-145); TOTAL PROTEIN, SERUM 7.4 g/dL (6.0-8.3); UREA NITROGEN, BLOOD 4.0 mg/dL (7-18)
--- NOTE | 2025-03-23 06:11 | NUR ---
lab TCK 1994 LAB VALUE DECREASING MD AWARE OF PT STATUS
[2025-03-23 06:12] LABS: CREATINE KINASE, TOTAL 1995.0 U/L (21-232)
--- NOTE | 2025-03-23 08:33 | NUR ---
DISCUSSED WITH HUMAN RESOURCES INTERN- NO TELE PSYCH CALLED LAST NIGHT. NEEDED TO BE CALLED TO SCREEN/CLEAR PATIENT WHEN IT WAS ORDERED. CHRISTIAN STATES PATIENT WAS VERY UPSET THIS AM WHEN ADVISED HE NEEDED TO WAIT FOR ASSESSMENT
--- NOTE | 2025-03-23 08:40 | NUR ---
AMA Concern This CM received call from RESIDENTIAL ROOFER HELPER regarding concern patient may want to leave AMA and next steps since patient has not been cleared by psychiatry and is on SI precautions. Informed we do not have a section and cannot physically hold the patient here. Offered to speak with the patient. Went to speak with patient. Patient has no recollection of making statements of wanting to harm himself or anyone else. Patient wants out of the paper gown. Patient states he promises he does not want to harm himself or anyone else. Patient stated he has a job he wants to get back to and wants to see his kids. Patient's behavior and conversation was calm and rationale. Patient stated is willing to speak with telepsychiatrist. Informed if cleared, then attending can remove SI precautions. Informed this CM has not reviewed chart, but if labs are improved, may possibly be released if cleared. Informed if labs are not improved then may need to stay a day or 2 more. Patient is in agreement to plan and is willing to participate and not leave AMA.
--- NOTE | 2025-03-23 09:14 | PN ---
[facility] PROGRESS NOTE Date of Service: Mar 23, 2025 Time of Service: 09:12 SUBJECTIVE: [ ] Mr. Bauer is a 29-year-old male that was seen and examined today on 03/21/2025. Patient is currently a poor historian after receiving IV Valium and oral Librium. There was no previous medical records available for me to review. The following was obtained from emergency room physician report. This is a 29-year-old male with a history of alcohol abuse, alcohol dependence with withdrawal episodes, anxiety and reported liver disease who presents from police custody after being arrested for public intoxication overnight. Patient reports drinking alcohol daily with his last drink yesterday afternoon. He states he experiences withdrawals if I do not drink. Upon arrival to the emergency department that patient was visibly intoxicated, becoming increasingly agitated, restless and wanted to leave the hospital. He denied suicidal or homicidal ideation. ED staff noted hypertension and tachycardia on presentation. Labs are significant for sodium of 114, potassium 3.0, hypochloremia with a chloride of 73, calcium 7.5, hypomagnesemia with magnesium of 1.4, CK was 1983, serum alcohol level was 176 renal function is normal WBCs are unremarkable. Patient is clinically dehydrated, tachycardic and at high risk for imminent alcohol withdrawal, including seizures or DTs. CI WA protocol was initiated. Patient continues to display empiric judgment agitation and poor ability to follow directions. 03/22/25 patient has 1-1 observation suicidal, the patient is requesting multiple times for additional Ativan, patient was given Valium. We will increase Librium to 50 mg as needed. Patient reports does not want to harm self or others. He continues with IV fluids and CIWA protocol. Advised patient he will need to stay until his CK improves he verbalized understanding. 03/23/25 this morning patient wanted to leave AMA case management spoke to patient that patient needs to be evaluated by tele psych. The patient is calm and relax does not want to harm self or others. CK is trending down continue with IV fluids. Tele Psych recommendations: as per note: does not require inpatient psychiatric admission. will start Zolfot 25 mg po daily for one wk and then incrase to 50 mg daily: I will give a bolus of NS 500 ml x1 recheck ck 1600 REVIEW OF SYSTEMS CONSTITUTIONAL: Denies fevers, chills, or night sweats. No unintentional weight loss reported. NEUROLOGICAL: Denies headache, amaurosis fugax, motor weakness, sensory deficit, vertigo/spinning sensation, gait abnormalities, or tremors. ENT: No hearing loss, otalgia, otorrhea, rhinitis, rhinorrhea, hoarseness, or sore throat. CARDIOVASCULAR: Denies any exertional angina, dyspnea on exertion, orthopnea, paroxysmal nocturnal dyspnea, palpitations, life-threatening arrhythmias, claudication. PULMONARY: Denies any shortness of breath, cough, phlegm/sputum, hemoptysis, pleuritic chest pain. SLEEP: Denies morning headaches, daytime somnolence or napping. Denies difficulty falling asleep, staying asleep, waking from sleep. Denies knowledge of snoring. GASTROINTESTINAL: Denies any type of dysphagia to either liquids or solids. Denies nausea, vomiting, pyrosis, early satiety, abdominal pain, diarrhea, constipation, or changes in stool consistency or caliber. Denies coffee-ground emesis, hematemesis, hematochezia, or melanotic stools. GENITOURINARY: Denies frequency, urgency, nocturia, hematuria or incontinence (Storage/Irritative symptoms.) Low urinary stream, straining to void, urinary intermittency or hesitancy, splitting of the voiding stream, terminal dribbling. ENDOCRINOLOGIC: Denies polyuria, polydipsia, polyphagia or heat/cold intolerances. HEMATOLOGIC: Denies thrombophilia/previous clots, or coagulopathy/bleeding di sorders. ONCOLOGIC: Denies personal history of malignancy. DERMATOLOGIC: Denies rashes or pruritus. PSYCHIATRIC: Denies any suicidal or homicidal ideation. Denies hallucinations. PHYSICAL EXAM GENERAL APPEARANCE: The patient is awake, alert, and oriented, in no acute cardiopulmonary distress. NEUROLOGICAL: Cranial nerves II-XII grossly intact. Motor is 5/5 in bilateral upper and lower extremities proximal to distal. No sensory deficits. HEENT: Face is symmetric. Pupils are equal and reactive. Extraocular movements are intact. NECK: Supple. No JVD. No thyromegaly. No submental, submandibular, pre- /postauricular, occipital or supraclavicular lymphadenopathy. CHEST: Normal chest expansion. No Telemetry. LUNGS: Absence of any rales, rhonchi or any wheezing. CARDIOVASCULAR: Regular. S1 and S2 normal. No appreciable rubs, murmurs or gallops. ABDOMEN: Soft, nontender, and nondistended. There is no rebound, voluntary guarding, or rigidity. : Deferred. No Ham. EXTREMITIES: Non-edematous and not cyanotic. No clubbing. Good capillary refill. SKIN: No skin breakdown. Vital Signs (last 8hr) Date Time Temp Pulse Resp B/P (MAP) Pulse Ox O2 Delivery O2 Flow Rate FiO2 03/23/25 07:16 97.9 96 17 142/103 96 Room Air 03/23/25 07:10 98.2 72 18 156/98 98 Room Air 03/23/25 03:59 97.5 81 20 144/108 100 Room Air LABS: Laboratory: Test 03/23/25 04:56 03/22/25 22:13 03/21/25 17:55 03/21/25 16:15 Range/Units White Blood Count 4.6 L 4.8-10.8 K/uL Red Blood Count 5.06 4.50-6.20 MIL/uL Hemoglobin 14.9 14.0-18.0 g/dL Hematocrit 42.2 42-54 % Mean Corpuscular Volume 83.4 79-99 fL Mean Corpuscular Hemoglobin 29.4 27.0-33.0 pg Mean Corpuscular Hemoglobin Concent 35.3 32.0-36.0 g/dL Red Cell Distribution Width 12.3 11.0-15.5 % Platelet Count 89 #L 130-400 K/uL Mean Platelet Volume 8.6 7.5-10.5 fL Immature Granulocyte % (Auto) 0.4 0-1 % Neutrophils (%) (Auto) 73.6 40.0-77.0 % Lymphocytes (%) (Auto) 14.4 L 21.0-51.0 % Monocytes (%) (Auto) 10.1 3.0-13.0 % Eosinophils (%) (Auto) 1.3 0.0-8.0 % Basophils (%) (Auto) 0.2 0.0-5.0 % Neutrophils # (Auto) 3.4 1.8-7.7 K/uL Lymphocytes # (Auto) 0.7 L 1.0-4.8 K/uL Monocytes # (Auto) 0.5 0.1-1.0 K/uL Eosinophils # (Auto) 0.06 0.00-0.70 K/uL Basophils # (Auto) 0.01 0.00-0.20 K/uL Absolute Immature Granulocyte (auto 0.02 0-1 K/uL Nucleated Red Blood Cells 0.0 0.0-0.19 % Sodium Level 132 L 136-145 mmol/L Potassium Level 3.3 L 3.5-5.1 mmol/L Chloride Level 95 L 101-111 mmol/L Carbon Dioxide Level 28 21-32 mmol/L Blood Urea Nitrogen 4 L 7-18 mg/dL Creatinine 0.5 0.5-1.3 mg/dL Glomerular Filtration Rate Calc 143 >90 mL/min Random Glucose 87 70-105 mg/dL Total Calcium 8.8 8.5-10.1 mg/dL Magnesium Level 2.30 1.80-2.40 mg/dL Total Bilirubin 1.7 H 0.2-1.0 mg/dL Aspartate Amino Transf (AST/SGOT) 99 H 10-37 U/L Alanine Aminotransferase (ALT/SGPT) 99 H 12-78 U/L Alkaline Phosphatase 85 50-136 U/L Total Creatine Kinase 1994 #*H 21-232 U/L Total Protein 7.4 6.0-8.3 g/dL Albumin 3.6 3.5-5.0 g/dL Serum Alcohol < 3 0-10 mg/dL Urine Color STRAW YELLOW Urine Appearance CLEAR CLEAR Urine pH 5.5 5.0-8.0 Urine Specific [place] 1.003 1.001-1.031 Urine Protein 10 H NEGATIVE mg/dL Urine Glucose (UA) NEGATIVE NEGATIVE mg/dL Urine Ketones 20 H NEGATIVE mg/dL Urine Occult Blood MODERATE H NEGATIVE Urine Nitrate NEGATIVE NEGATIVE Urine Bilirubin NEGATIVE NEGATIVE mg/dL Urine Urobilinogen 0.2 0.2-1.0 mg/dL Urine Leukocyte Esterase NEGATIVE NEGATIVE Sarah/uL Urine RBC 0-1 0-1 /HPF Urine WBC 0-1 0-1 /HPF Urine Bacteria None None Seen /HPF Urine Opiates Screen NEGATIVE NEGATIVE Urine Barbiturates Screen NEGATIVE NEGATIVE Urine Phencyclidine Screen NEGATIVE NEGATIVE Urine Amphetamines Screen NEGATIVE NEGATIVE Urine Benzodiazepines Screen NEGATIVE NEGATIVE Urine Cocaine Screen NEGATIVE NEGATIVE Urine Marijuana (THC) Screen NEGATIVE NEGATIVE Segmented Neutrophils % 69 40-70 % Band Neutrophils % 14 H 0-2 % Lymphocytes % (Manual) 7 L 22-44 % Monocytes % (Manual) 10 H 2-9 % Differential Comment MANUAL DIFFERENTIAL White Cell Morphology Comment CONSISTENT W/DIFF Platelet Morphology Comment ADEQUATE Red Blood Cell Morphology ANISO 1+ Salicylates Level < 2.8 L 2.8-20.0 mg/dL Acetaminophen Level < 1 L 10-29 mcg/mL Current Medications Medications (Trade) Dose Ordered Sig/Sumanth Route PRN Reason Start Time Stop Time Status Last Admin Dose Admin Chlordiazepoxide HCl (LIBrium 25 MG CAP) 25 mg Q8H PO 03/22/25 04:00 03/22/25 10:15 DC 03/22/25 04:41 25 MG Chlordiazepoxide HCl (LIBrium 25 MG CAP) 50 mg Q1H PRN PO ALCOHOL WITHDRAWAL PROTOCOL 03/21/25 17:00 03/28/25 16:59 03/23/25 01:30 50 MG Chlordiazepoxide HCl (LIBrium 25 MG CAP) 50 mg Q8H PO 03/22/25 12:00 03/29/25 11:59 03/23/25 04:02 50 MG Diazepam (VALium 5 MG/ML 2 ML SYG) 5 mg Q4H PRN IV ANXIETY 03/21/25 16:30 03/28/25 16:29 03/22/25 17:43 5 MG Folic Acid (FOLic ACID 1 MG TABLET) 1 mg DAILY PO 03/22/25 09:00 03/24/25 09:01 03/22/25 08:33 1 MG Lorazepam (AtiVAN) 2 mg Q4H PRN IVP ALCOHOL WITHDRAWAL PROTOCOL 03/21/25 20:00 03/28/25 19:59 03/23/25 07:02 2 MG Magnesium Sulfate 50 ml @ 0 mls/hr PROTOCOL IV 03/21/25 17:30 03/23/25 07:55 DC 03/21/25 19:10 25 MLS/HR Magnesium Sulfate 50 ml @ 0 mls/hr PROTOCOL PRN IV h 03/21/25 20:00 04/20/25 19:59 Multivitamins Therapeutic (Multivitamin Tablet) 1 tab DAILY PO 03/22/25 09:00 04/21/25 08:59 03/22/25 08:33 1 TAB Pharmacy Profile Note (Pharmacy Communication) 1 each PROTOCOL PRN MISC ETOH Withdrawal Score changes 03/21/25 17:00 03/22/25 09:49 DC Pharmacy Profile Note (Pharmacy Communication) 1 each PROTOCOL PRN MISC ETOH Withdrawal Score changes 03/21/25 20:00 03/23/25 02:40 DC 03/23/25 01:30 1 EACH Potassium Chloride 100 ml @ 50 mls/hr AD PRN IV POTASSIUM PROTOCOL 03/21/25 20:00 03/23/25 07:55 DC Potassium Chloride 100 ml @ 100 mls/hr AD PRN IV POTASSIUM PROTOCOL 03/21/25 20:00 04/20/25 19:59 Potassium Chloride (K-Dur/Klor-Con 20meq) 20 meq AD PRN PO POTASSIUM PROTOCOL 03/21/25 20:00 04/20/25 19:59 03/22/25 15:37 20 MEQ Potassium Chloride (KCl 10% Elixir 20meq/15ml) 20 meq AD PRN PO POTASSIUM PROTOCOL 03/21/25 20:00 04/20/25 19:59 Sodium Chloride 1,000 ml @ 150 mls/hr Q6H40M IV 03/22/25 10:00 04/21/25 09:59 03/22/25 00:30 150 MLS/HR Thiamine HCl (Vitamin B-1) 100 mg DAILY IM 03/22/25 09:00 03/24/25 09:01 03/22/25 08:34 100 MG Thiamine HCl 100 mg/Folic Acid 1 mg/Multivitamins/ Minerals 10 ml/ Sodium Chloride 1,011.2 ml @ 100 mls/ hr Q24H IV 03/21/25 17:00 03/22/25 09:48 DC 03/21/25 17:47 100 MLS/HR Thiamine HCl 100 mg/Folic Acid 1 mg/Multivitamins/ Minerals 10 ml/ Sodium Chloride 1,011.2 ml @ 100 mls/ hr Q24H IV 03/21/25 20:00 03/22/25 10:27 DC DIAGNOSTICS / RADIOLOGY: [ ] Acute alcohol withdrawal/acute alcohol intoxication, POA Severe hyponatremia likely beer potomania, POA Dehydration, POA hypokalemia, POA Hypomagnesemia, POA Rhabdomyolysis, POA High anion gap metabolic disturbance, POA PLAN: [ Patient was evaluated by tele psych patient did not require inpatient psychiatric. He recommend Zoloft 25 mg daily for one week and then increase daily. She continues with IV fluids we will received one time bolus of 500 of NS recheck CK at 1600. Patient denied chest pain shortness for breath patient remains anxious requesting something for anxiety. Spouse at bedside answer all questions and concerns. Admit patient to medical floor as inpatient status. Place patient on telemetry monitoring. Continues 1-1 we will have social worker masters once patient is stable for Behavioral screening NS at 150 . mL/hour x1 bolus 500 mL repeat CK 1600 Continue CIWA protocol Counseled patient on alcohol cessation. We will follow tele psych recommendations Zoloft 25 mg p.o. daily one-week then increase to 50 daily Replace potassium per hospital protocol Replace magnesium per hospital protocol Avoid nephrotoxic medications when possible Monitor patient's renal function Intake and output every shift Weight patient daily GI prophylaxis, famotidine DVT prophylaxis, Osito's and SCDs avoid anticoagulation at this time due to rep orted liver disease This document was generated in part using voice recognition software, occasional wrong word or sound alike substitutions may have occurred due to the inherent limitations of voice recognition software. Read the chart carefully and re cognize using context, where the substitutions have occurred. Although every effort was made to edit the content, court transcriber and typing errors may occur ATTESTATION BY PHYSICIAN I have seen and examined the patient. I reviewed the documentation, medical decision making, and treatment plan as noted by the mid-level provider above. I agree with the findings and plan of care. Jin Javier IV, MD, [facility] Mar 23, 2025 09:14
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
[2025-03-23] MEDS ORDERED: MAGNESIUM 2GM PREMIX 50ML 50 ML IV SCH (09:30)
[2025-03-23] MEDS: PoTASSium chloRIDE 20MEQ ER 20 MEQ ERTAB PO ONE (09:34)
[2025-03-23] MEDS: 0.9% NACL 500ML IV.SOLN 500 ML IV ONE (12:15)
[2025-03-24 04:29] VITALS: BP 130/80; PULSE 73; RESP 19; TEMP 98.2
[2025-03-24 04:43] LABS: IMMATURE GRANULOCYTE ABSOLUTE 0.01 K/uL (0-1); NUCLEATED RED BLOOD CELLS 0.0 % (0.0-0.19); PLATELET COUNT (AUTO) 81 K/uL (130-400); RED BLOOD CELL COUNT(AUTO) 5.04 MIL/uL (4.50-6.20); RED CELL DISTRIBUTION WIDTH 12.8 % (11.0-15.5); WHITE BLOOD COUNT (AUTO) 3.6 K/uL (4.8-10.8)
[2025-03-24 05:14] LABS: ASPARTATE AMINOTRANSFERASE 71.0 U/L (10-37); CREATININE 0.5 mg/dL (0.5-1.3); GLOMERULAR FILTR. RATE CALC 143.0 mL/min (>90); GLUCOSE,RANDOM 94.0 mg/dL (70-105); SODIUM SERUM 133.0 mmol/L (136-145); TOTAL PROTEIN, SERUM 7.0 g/dL (6.0-8.3); UREA NITROGEN, BLOOD 6.0 mg/dL (7-18)
[2025-03-24 05:17] LABS: CREATINE KINASE, TOTAL 641.0 U/L (21-232)
[2025-03-24 07:57] VITALS: BP_SYST 136; BP_SYST 143; BP_DIAS 80; BP_DIAS 98; PULSE 92; RESP 19; TEMP 98
[2025-03-24] MEDS: PoTASSium chloRIDE 20MEQ ER 20 MEQ ERTAB PO ONE (08:39)
[2025-03-24] MEDS ORDERED: SERT50TA PO (09:50)
[2025-03-24] MEDS ORDERED: CHLO25CA6 PO (09:50)
[2025-03-24] MEDS ORDERED: HYDR-3421 PO (09:52)
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
[2025-03-24 10:03] VITALS: O2SAT 99
== END 2025-03-24 10:43 | disposition home or self-care (01) | DRG 641 ==
LOC: EDH 15:58 → EDHIP 19:12 → 4DH 20:50
PROVIDERS: ADMIT Internal Medicine; ATTEND Internal Medicine
DX: E86.0 Dehydration (principal); M62.82 Rhabdomyolysis; F10.129 Alcohol abuse with intoxication, unspecified; I10 Essential (primary) hypertension; K76.9 Liver disease, unspecified; F10.139 Alcohol abuse with withdrawal, unspecified; E87.1 Hypo-osmolality and hyponatremia; E83.42 Hypomagnesemia; E87.6 Hypokalemia; F41.9 Anxiety disorder, unspecified; E87.8 Other disorders of electrolyte and fluid balance, not elsewhere classified
CPT/HCPCS: 36415; 80048; 80053; 80305; 81001; 82550; 83735; 85025; 96365; 96375; 96376; 99285; G0378; G0481; J2060; J3360; J3411; J3475; J3490; J7030; J7040